=== PATIENT | female | born 1940 | race Caucasian/White ===

== ENCOUNTER 2017-09-28 18:35 | Observation (INO) | payer MEDICARE, OTHER ==
[~2017-09-28 18:35] MED LIST: ACETAMINOPHEN 325 MG TABLET PO PRN
[2017-09-28] MEDS ORDERED: ASPIRIN 81 MG TABLET, CHEWABLE PO ONE (19:43)
--- NOTE | 2017-09-28 19:44 | ER Document Report ---
ED Medical Screen (RME) - General Chief Complaint: Blood Pressure Problem Stated Complaint: BLOOD PRESSURE ISSUES Time Seen by Provider: 09/28/17 19:39 Mode of Arrival: Medic Information source: Patient Notes: 77-year-old female history of hypertension diabetes called EMS for high blood pressure, when they arrived patient's blood pressure was noted to be 154/88, however upon arrival to emergency department patient now states she is having left-sided chest pain when she breathes Patient also admits left hip pain I have greeted and performed a rapid initial assessment of this patient. A comprehensive ED assessment and evaluation of the patient, analysis of test results and completion of the medical decision making process will be conducted by additional ED providers. PHYSICAL EXAMINATION: GENERAL: Well-appearing, well-nourished and in no acute distress. HEAD: Atraumatic, normocephalic. EYES: Pupils equal round extraocular movements intact, conjunctiva are normal. ENT: Nares patent NECK: Normal range of motion LUNGS: No respiratory distress Musculoskeletal: Normal range of motion NEUROLOGICAL: Normal speech, normal gait. PSYCH: Normal mood, normal affect. SKIN: Warm, Dry, normal turgor, no rashes or lesions noted. TRAVEL OUTSIDE OF THE [place] IN LAST 30 DAYS: No - Related Data Allergies/Adverse Reactions: No Known Allergies Allergy (Unverified 11/25/11 13:11) Past Medical History - Social History Chew tobacco use (# tins/day): No Frequency of alcohol use: None Drug Abuse: None - Past Medical History Cardiac Medical History: Reports: Hx Hypertension Endocrine Medical History: Reports: Hx Diabetes Mellitus Type 2 Renal/ Medical History: Denies: Hx Peritoneal Dialysis GI Medical History: Reports: Hx Gastroesophageal Reflux Disease Musculoskeltal Medical History: Reports Hx Arthritis Past Surgical History: Reports: Hx Hysterectomy, Hx Orthopedic Surgery - left hip Physical Exam - Vital signs Vitals: Temp Pulse BP Pulse Ox 99.3 F 106 H 152/90 H 99 09/28/17 19:01 09/28/17 19:01 09/28/17 19:01 09/28/17 19:01 Course - Vital Signs Vital signs: Temp Pulse Resp BP Pulse Ox 99.3 F 106 H 152/90 H 99 09/28/17 19:01 09/28/17 19:01 09/28/17 19:01 09/28/17 19:01
--- NOTE | 2017-09-28 20:40 | ER Document Report ---
ED General - General Chief Complaint: Blood Pressure Problem Stated Complaint: BLOOD PRESSURE ISSUES Time Seen by Provider: 09/28/17 19:39 Mode of Arrival: Medic Information source: Patient Notes: This is a 77-year-old female with a history of hypertension, diabetes who is brought in by EMS with complaints of left chest pressure. Patient states that she has been under a lot of stress lately and she was experiencing left chest pressure and called EMS and told them she was worried about her blood pressure. Currently, the patient denies any chest pain. TRAVEL OUTSIDE OF THE [place] IN LAST 30 DAYS: No - HPI Onset: This morning Onset/Duration: Gradual Quality of pain: Dull Severity: Moderate Pain Level: 2 Associated symptoms: denies: Chills, Fever, Nausea Exacerbated by: Denies Relieved by: Denies Similar symptoms previously: No Recently seen / treated by doctor: No - Related Data Allergies/Adverse Reactions: No Known Allergies Allergy (Unverified 11/25/11 13:11) Past Medical History - General Information source: Patient - Social History Smoking Status: Never Smoker Chew tobacco use (# tins/day): No Frequency of alcohol use: None Drug Abuse: None Lives with: Family Family History: None Patient has suicidal ideation: No Patient has homicidal ideation: No - Past Medical History Cardiac Medical History: Reports: Hx Hypertension Endocrine Medical History: Reports: Hx Diabetes Mellitus Type 2 Renal/ Medical History: Denies: Hx Peritoneal Dialysis GI Medical History: Reports: Hx Gastroesophageal Reflux Disease Musculoskeltal Medical History: Reports Hx Arthritis Past Surgical History: Reports: Hx Hysterectomy, Hx Orthopedic Surgery - left hip Review of Systems - Review of Systems Constitutional: denies: Chills, Fever EENT: No symptoms reported Cardiovascular: See HPI Respiratory: No symptoms reported Gastrointestinal: No symptoms reported Genitourinary: No symptoms reported Female Genitourinary: No symptoms reported Musculoskeletal: See HPI Skin: No symptoms reported Hematologic/Lymphatic: No symptoms reported Neurological/Psychological: No symptoms reported Physical Exam - Vital signs Vitals: Temp Pulse BP Pulse Ox 99.3 F 106 H 152/90 H 99 09/28/17 19:01 09/28/17 19:01 09/28/17 19:01 09/28/17 19:01 Notes: Physical exam: GENERAL: 87-year-old female, alert and oriented 3, no acute distress HEAD: Atraumatic, normocephalic. EYES: Pupils equal round and reactive to light, extraocular movements intact, sclera anicteric, conjunctiva are normal. ENT: TMs normal, nares patent, oropharynx clear without exudates. Moist mucous membranes. NECK: Normal range of motion, supple without obvious mass or JVD. LUNGS: Breath sounds clear to auscultation bilaterally and equal. No wheezes rales or rhonchi. HEART: Regular rate and rhythm without murmurs, rubs or gallops. ABDOMEN: Soft, normoactive bowel sounds. No tenderness to palpation. No guarding, no rebound. No masses appreciated. EXTREMITIES: Normal range of motion, no pitting or edema. No clubbing or cyanosis. NEUROLOGICAL: Cranial nerves II through XII grossly intact. Normal speech, moving all extremities. PSYCH: Normal mood, normal affect. SKIN: Warm, Dry, normal turgor, no rashes or lesions noted. Course - Vital Signs Vital signs: Temp Pulse Resp BP Pulse Ox 98.5 F 93 16 142/62 H 97 09/29/17 01:20 09/29/17 01:20 09/29/17 01:20 09/29/17 01:20 09/29/17 01:20 - Laboratory Result Diagrams: 09/28/17 20:18 09/28/17 20:18 Laboratory results interpreted by me: 09/28/17 09/28/17 20:18 20:18 WBC 12.8 H Hgb 11.6 L Hct 35.8 L Absolute Neutrophils 9.8 H Glucose 130 H - Diagnostic Test Radiology reviewed: Image reviewed, Reports reviewed - EKG Interpretation by Me Rate: Normal Rhythm: NSR - EKG shows normal sinus rhythm with a ventricular rate of 95, no acute ST-T wave changes Discharge - Discharge Clinical Impression: Chest pain Condition: Stable Disposition: ADMITTED OBSERVATION Admitting Provider: [facility] Admitted: Telemetry
[2017-09-28 20:42] LABS: ABSOLUTE EOSINOPHILS # (AUTO) 0.1 10^3/uL (0.0-0.6); ABSOLUTE LYMPHOCYTES (AUTO) 1.9 10^3/uL (0.5-4.7); ABSOLUTE MONOCYTES (AUTO) 0.9 10^3/uL (0.1-1.4); ABSOLUTE NEUT (AUTO) 9.8 10^3/uL (1.7-8.2); BASOPHILS % (AUTO) 0.3 % (0-2); EOSINOPHILS % (AUTO) 0.5 % (0-6); HEMATOCRIT 35.8 % (36.0-47.0); HEMOGLOBIN 11.6 g/dL (12.0-15.5); LYMPHOCYTES % (AUTO) 15.2 % (13-45); MEAN CORPUSCULAR HEMOGLOBIN 29.7 pg (27.0-33.4); MEAN CORPUSCULAR HGB CONC 32.4 g/dL (32.0-36.0); MEAN CORPUSCULAR VOLUME 92 fl (80-97); PLATELET COUNT 211 10^3/uL (150-450); RED BLOOD COUNT 3.91 10^6/uL (3.72-5.28); RED CELL DISTRIBUTION WIDTH 13.9 % (11.5-14.0); TOTAL CELLS COUNTED % (AUTO) 100 %; WHITE BLOOD COUNT 12.8 10^3/uL (4.0-10.5)
[2017-09-28 20:57] LABS: ALANINE AMINOTRANSFERASE 32 U/L (9-52); ALBUMIN 4.3 g/dL (3.5-5.0); ALKALINE PHOSPHATASE 78 U/L (38-126); ANION GAP 14 (5-19); ASPARTATE AMINO TRANSFERASE 26 U/L (14-36); BILIRUBIN,DIRECT 0.2 mg/dL (0.0-0.4); BILIRUBIN,TOTAL 0.3 mg/dL (0.2-1.3); BLOOD UREA NITROGEN 18 mg/dL (7-20); CALCIUM 9.8 mg/dL (8.4-10.2); CARBON DIOXIDE 25 mmol/L (22-30); CHLORIDE 104 mmol/L (98-107); CREATINE KINASE 45 U/L (30-135); GLUCOSE 130 mg/dL (75-110); POTASSIUM 4.2 mmol/L (3.6-5.0); SODIUM 143.3 mmol/L (137-145); TOTAL PROTEIN 7.3 g/dL (6.3-8.2)
[2017-09-28 21:09] LABS: CREATINE KINASE MB 0.42 ng/mL (<4.55); TROPONIN I < 0.012 ng/mL
--- NOTE | 2017-09-28 21:31 | RADIOLOGY REPORT (SQ) ---
EXAM DESCRIPTION: CHEST SINGLE VIEW COMPLETED DATE/TIME: 09/28/2017 8:17 pm REASON FOR STUDY: chest pain COMPARISON: 07/03/2009 EXAM PARAMETERS: NUMBER OF VIEWS: One view. TECHNIQUE: Single frontal radiographic view of the chest acquired. RADIATION DOSE: NA LIMITATIONS: None. FINDINGS: LUNGS AND PLEURA: No acute opacities, masses or pneumothorax. No pleural effusion. MEDIASTINUM AND HILAR STRUCTURES: No masses. Contour normal. HEART AND VASCULAR STRUCTURES: Heart normal in size. Normal vasculature. BONES: No acute findings. Old healed right lateral rib fractures. HARDWARE: None in the chest. OTHER: No other significant finding. IMPRESSION: NO ACUTE RADIOGRAPHIC FINDING IN THE CHEST. TECHNICAL DOCUMENTATION: JOB ID: [id number] [place]-72 2010 [email or web address]- All Rights Reserved Reading location - IP/workstation name: [email or web address]
--- NOTE | 2017-09-28 23:29 | RADIOLOGY REPORT (SQ) ---
EXAM DESCRIPTION: KUB/ABDOMEN (SINGLE VIEW) COMPLETED DATE/TIME: 09/28/2017 10:28 pm REASON FOR STUDY: abd pain COMPARISON: None. NUMBER OF VIEWS: One view. TECHNIQUE: Supine radiographic image of the abdomen acquired. LIMITATIONS: None. FINDINGS: BOWEL GAS PATTERN: Normal bowel gas pattern. No dilated loops. CALCIFICATIONS: No suspicious calcifications. SOFT TISSUES: No gross mass or suggestion of organomegaly. HARDWARE: Cholecystectomy. BONES: No acute fracture. No worrisome bone lesions. OTHER: No other significant finding. IMPRESSION: NO RADIOGRAPHIC EVIDENCE FOR ACUTE ABDOMINAL DISEASE. TECHNICAL DOCUMENTATION: JOB ID: [id number] [place]-72 2010 [employer]- All Rights Reserved Reading location - IP/workstation name: [email or web address]
[2017-09-28] MEDS ORDERED: MORPHINE SULFATE 10 MG/ML INJ INJ PRN (23:58)
[2017-09-29] MEDS ORDERED: NITROGLYCERIN 0.4 MG/TAB 25 TAB/BOTTLE SL PRN (00:03)
[2017-09-29] MEDS ORDERED: ONDANSETRON HCL/PF 4 MG in NORMAL SALINE 50 ML IV PRN (00:04)
[2017-09-29] MEDS ORDERED: ZOLPIDEM TARTRATE 5 MG TABLET PO PRN (00:08)
[2017-09-29 06:27] LABS: HEMATOCRIT 32.4 % (36.0-47.0); HEMOGLOBIN 10.6 g/dL (12.0-15.5); MEAN CORPUSCULAR HEMOGLOBIN 29.8 pg (27.0-33.4); MEAN CORPUSCULAR HGB CONC 32.8 g/dL (32.0-36.0); MEAN CORPUSCULAR VOLUME 91 fl (80-97); PLATELET COUNT 172 10^3/uL (150-450); RED BLOOD COUNT 3.57 10^6/uL (3.72-5.28); RED CELL DISTRIBUTION WIDTH 13.8 % (11.5-14.0); WHITE BLOOD COUNT 11.5 10^3/uL (4.0-10.5)
[2017-09-29 06:48] LABS: ALANINE AMINOTRANSFERASE 28 U/L (9-52); ALBUMIN 3.6 g/dL (3.5-5.0); ALKALINE PHOSPHATASE 64 U/L (38-126); ANION GAP 12 (5-19); ASPARTATE AMINO TRANSFERASE 20 U/L (14-36); BILIRUBIN,DIRECT 0.1 mg/dL (0.0-0.4); BILIRUBIN,TOTAL 0.3 mg/dL (0.2-1.3); BLOOD UREA NITROGEN 15 mg/dL (7-20); CALCIUM 9.1 mg/dL (8.4-10.2); CARBON DIOXIDE 24 mmol/L (22-30); CHLORIDE 107 mmol/L (98-107); CHOLESTEROL 113.16 mg/dL (0-200); CREATINE KINASE 35 U/L (30-135); GLUCOSE 150 mg/dL (75-110); POTASSIUM 3.7 mmol/L (3.6-5.0); SODIUM 143.4 mmol/L (137-145); TOTAL PROTEIN 6.2 g/dL (6.3-8.2); TRIGLYCERIDES 88 mg/dL (<150)
[2017-09-29 06:58] LABS: CREATINE KINASE MB 0.38 ng/mL (<4.55); TROPONIN I 0.023 ng/mL
[2017-09-29 06:59] LABS: DIRECT LDL 60 mg/dL (<100)
[2017-09-29] MEDS ORDERED: LANSOPRAZOLE 30 MG TAB.RAP.DR PO SCH (08:00)
[2017-09-29] MEDS ORDERED: ASPIRIN 81 MG TABLET, ENT COATED PO SCH (10:00)
[2017-09-29] MEDS ORDERED: GLIMEPIRIDE 4 MG TABLET PO SCH (10:00)
[2017-09-29] MEDS ORDERED: ENOXAPARIN SODIUM INJ 40 MG/0.4 ML DISP.SYRIN SUBCUT SCH (10:00)
[2017-09-29] MEDS ORDERED: LISINOPRIL 10 MG TABLET PO SCH (10:00)
[2017-09-29] MEDS ORDERED: DOCUSATE SODIUM 100 MG CAPSULE PO SCH (10:00)
--- NOTE | 2017-09-29 11:31 | PDOC H&P ---
History of Present Illness Admission Date/PCP: 09/28/17 22:24 AXEL BENDER Patient complains of: Left sided chest pressure that lasted for sometime. History of Present Illness: NELLIE ZUNIGA is a 77 year old female with hx of DM2/HTN/Hyperlipidemia/ GERD/OA- knees/Right shoulder bursitis/s.p left nephrectomy, who has been under a lot stress lately. She started having left sided chest pain- pressure- like, 5/10 in intensity, non- radiating, associated with dyspnea.Denied nausea/ vomiting, palpitations, diaphoresis, cough. On account of persistence of symptoms, she called EMS and she was brought to ER for mgt. She was admitted for 23 hour observation to rule out DC. Past Medical History Cardiac Medical History: Reports: Hypertension Endocrine Medical History: Reports: Diabetes Mellitus Type 2 GI Medical History: Reports: Gastroesophageal Reflux Disease Musculoskeltal Medical History: Reports: Arthritis Past Surgical History Past Surgical History: Reports: Hysterectomy, Orthopedic Surgery - left hip Social History Lives with: Family Smoking Status: Never Smoker Family History Family History: None Parental Family History Reviewed: Yes Children Family History Reviewed: Yes Sibling(s) Family History Reviewed.: Yes Medication/Allergy Home Medications: Glimepiride [Glimepiride] 4 mg PO 0730 09/29/17 Lisinopril [Lisinopril] 20 mg PO 0730 09/29/17 Lisinopril [Lisinopril] 20 mg PO 1800 09/29/17 Omeprazole [Omeprazole] 20 mg PO 0730 09/29/17 Allergies/Adverse Reactions: No Known Allergies Allergy (Unverified 11/25/11 13:11) Review of Systems Constitutional: PRESENT: as per HPI Eyes: PRESENT: as per HPI Ears: PRESENT: as per HPI Nose, Mouth, and Throat: PRESENT: as per HPI Breasts: PRESENT: as per HPI Cardiovascular: PRESENT: chest pain, dyspnea on exertion Respiratory: PRESENT: dyspnea Gastrointestinal: PRESENT: as per HPI Genitourinary: PRESENT: as per HPI - hip pain, other - hip pain Integumentary: PRESENT: as per HPI Neurological: PRESENT: as per HPI Psychiatric: PRESENT: as per HPI Endocrine: PRESENT: as per HPI Hematologic/Lymphatic: PRESENT: as per HPI Physical Exam Vital Signs: Temp Pulse Resp BP Pulse Ox 98.8 F 79 14 122/57 L 97 09/29/17 07:19 09/29/17 07:19 09/29/17 07:19 09/29/17 07:19 09/29/17 07:19 Intake & Output 09/28/17 09/29/17 09/30/17 06:59 06:59 06:59 Intake Total 760 Balance 760 General appearance: PRESENT: no acute distress, cooperative, well-developed, well-nourished Head exam: PRESENT: atraumatic, normocephalic Eye exam: PRESENT: EOMI, PERRLA Ear exam: PRESENT: normal external ear exam, TM's normal bilaterally Mouth exam: PRESENT: moist, neck supple, tongue midline Neck exam: PRESENT: full ROM Respiratory exam: PRESENT: clear to auscultation lissette, symmetrical Cardiovascular exam: PRESENT: +S1, +S2 Pulses: PRESENT: +2 pedal pulses bilateral GI/Abdominal exam: PRESENT: normal bowel sounds, soft Rectal exam: PRESENT: deferred Extremities exam: PRESENT: full ROM Musculoskeletal exam: PRESENT: full ROM Neurological exam: PRESENT: alert, awake, oriented to person, oriented to place , oriented to time Psychiatric exam: PRESENT: normal mood Results Laboratory Results: 09/29/17 05:23 09/29/17 05:23 09/29/17 09/29/17 09/29/17 05:23 05:23 05:23 WBC 11.5 H RBC 3.57 L Hgb 10.6 L Hct 32.4 L MCV 91 MCH 29.8 MCHC 32.8 RDW 13.8 Plt Count 172 Sodium 143.4 Potassium 3.7 Chloride 107 Carbon Dioxide 24 Anion Gap 12 BUN 15 Creatinine 0.78 Est GFR ( Amer) > 60 Est GFR (Non-Af Amer) > 60 Glucose 150 H Calcium 9.1 Total Bilirubin 0.3 AST 20 ALT 28 Alkaline Phosphatase 64 Total Protein 6.2 L Albumin 3.6 Triglycerides 88 Cholesterol 113.16 LDL Cholesterol Direct 60 VLDL Cholesterol 18.0 HDL Cholesterol 34 L TSH 1.32 09/29/17 09/29/17 09/29/17 00:38 05:23 05:23 Creatine Kinase 35 CK-MB (CK-2) 0.38 Troponin I < 0.012 0.023 Impressions: Chest X-Ray 09/28/17 19:43 IMPRESSION: NO ACUTE RADIOGRAPHIC FINDING IN THE CHEST. KUB X-Ray 09/28/17 22:10 IMPRESSION: NO RADIOGRAPHIC EVIDENCE FOR ACUTE ABDOMINAL DISEASE. Assessment & Plan - Diagnosis (1) Chest pain Qualifiers: Chest pain type: unspecified Qualified Code(s): R07.9 - Chest pain, unspecified Is this a current diagnosis for this admission?: Yes Plan: Ct with oxygen by N/C 2 L/min to keep saturation>92%; NTG 0.4 mg q5 minutes prn S/L x3; Morphine 4 mg q4h IV prn for severe chest pain; Zofran4 mg q6h IV prn nausea; Aspirin 81 mg qd po; serial EKG/cardiac enzymes to rule out DC. (2) Diabetes mellitus type 2 in nonobese Is this a current diagnosis for this admission?: Yes Plan: Ct with Amaryl 4 mg qd po; slidding scale with humalog insulin as per [facility] protocol; Accucheck qac, qhs. 1800 calorie ADA diet.HBA1C was obtained. (3) Hypertension Qualifiers: Hypertension type: essential hypertension Qualified Code(s): I10 - Essential (primary) hypertension Is this a current diagnosis for this admission?: Yes Plan: Ct with Lisinopril 40 mg qd po; 2 g sodium diet. (4) Hyperlipidemia Qualifiers: Hyperlipidemia type: mixed hyperlipidemia Qualified Code(s): E78.2 - Mixed hyperlipidemia Is this a current diagnosis for this admission?: Yes Plan: Ct with 200 mg cholesterol diet. (5) Reflux esophagitis Is this a current diagnosis for this admission?: Yes Plan: Ct wit Prevacid 30 mg qd po since we do not have Omeprazole in our formulary. (6) Osteoarthritis of knees, bilateral Qualifiers: Osteoarthritis type: unspecified Qualified Code(s): M17.0 - Bilateral primary osteoarthritis of knee Is this a current diagnosis for this admission?: Yes Plan: Ct with Tylenol 650 mg q6h prn po. (7) DVT prophylaxis Is this a current diagnosis for this admission?: Yes Plan: Ct with Lovenox 40 mg qd subcut; SCD - Time Time Spent: 30 to 50 Minutes Medications reviewed and adjusted accordingly: Yes Anticipated discharge: Home Within: within 24 hours
[2017-09-29 12:37] LABS: CREATINE KINASE MB 0.49 ng/mL (<4.55); TROPONIN I 0.032 ng/mL
[2017-09-29 12:44] VITALS: BP 119/60
--- NOTE | 2017-09-29 14:43 | PDOC DISCHARGE SUMMARY ---
General - Admit/Disc Date/PCP Admission Date/Primary Care Provider: 09/28/17 22:24 AXEL BENDER Discharge Date: 09/29/17 - Discharge Diagnosis (1) Chest pain Is this a current diagnosis for this admission?: Yes (2) Diabetes mellitus type 2 in nonobese Is this a current diagnosis for this admission?: Yes (3) Hypertension Is this a current diagnosis for this admission?: Yes (4) Hyperlipidemia Is this a current diagnosis for this admission?: Yes (5) Reflux esophagitis Is this a current diagnosis for this admission?: Yes (6) Osteoarthritis of knees, bilateral Is this a current diagnosis for this admission?: Yes (7) DVT prophylaxis Is this a current diagnosis for this admission?: Yes - Additional Information Home Medications: Ferrous Sulfate [Feosol 325 mg Tablet] 325 mg PO DAILY 09/29/17 Glimepiride [Glimepiride] 4 mg PO DAILY@0730 09/29/17 Lisinopril [Lisinopril] 20 mg PO BID@0730,1800 09/29/17 Omeprazole [Omeprazole] 20 mg PO DAILY@0730 09/29/17 History of Present Illness History of Present Illness: NELLIE ZUNIGA is a 77 year old female with hx of DM2/HTN/Hyperlipidemia/ GERD/OA- knees/Right shoulder bursitis/s.p left nephrectomy, who has been under a lot stress lately. She started having left sided chest pain- pressure- like, 5/10 in intensity, non- radiating, associated with dyspnea.Denied nausea/ vomiting, palpitations, diaphoresis, cough. On account of persistence of symptoms, she called EMS and she was brought to ER for mgt. She was admitted for 23 hour observation to rule out NC. Hospital Course Hospital Course: 77 year old woman with hx of DM/HTN/Hyperlipidemia/GERD, who was admitted for chest pain and NC was ruled out. She is under a lot of stress and the chest pain could be due to stress or anxiety related. She was counseled on stress mgt and she was advised to follw up with her PCP in 1 week to assess her for further risk stratification. The need for compliance with medications and office appointments was emphasized. Physical Exam Vital Signs: Temp Pulse Resp BP Pulse Ox 97.9 F 74 15 119/60 100 09/29/17 12:30 09/29/17 12:30 09/29/17 12:30 09/29/17 12:30 09/29/17 12:30 Intake & Output 09/28/17 09/29/17 09/30/17 06:59 06:59 06:59 Intake Total 760 118 Balance 760 118 General appearance: PRESENT: no acute distress, cooperative, well-developed, well-nourished Head exam: PRESENT: atraumatic, normocephalic Eye exam: PRESENT: EOMI, PERRLA Ear exam: PRESENT: normal external ear exam, TM's normal bilaterally Mouth exam: PRESENT: moist, neck supple, tongue midline Neck exam: PRESENT: full ROM Respiratory exam: PRESENT: clear to auscultation lissette, symmetrical Cardiovascular exam: PRESENT: +S1, +S2 Pulses: PRESENT: +2 pedal pulses bilateral GI/Abdominal exam: PRESENT: normal bowel sounds, soft Rectal exam: PRESENT: deferred Extremities exam: PRESENT: full ROM Musculoskeletal exam: PRESENT: full ROM Neurological exam: PRESENT: alert, awake, oriented to person, oriented to place , oriented to time Psychiatric exam: PRESENT: normal mood Results Laboratory Results: 09/29/17 05:23 09/29/17 05:23 09/29/17 09/29/17 09/29/17 05:23 05:23 05:23 WBC 11.5 H RBC 3.57 L Hgb 10.6 L Hct 32.4 L MCV 91 MCH 29.8 MCHC 32.8 RDW 13.8 Plt Count 172 Sodium 143.4 Potassium 3.7 Chloride 107 Carbon Dioxide 24 Anion Gap 12 BUN 15 Creatinine 0.78 Est GFR ( Amer) > 60 Est GFR (Non-Af Amer) > 60 Glucose 150 H Calcium 9.1 Total Bilirubin 0.3 AST 20 ALT 28 Alkaline Phosphatase 64 Total Protein 6.2 L Albumin 3.6 Triglycerides 88 Cholesterol 113.16 LDL Cholesterol Direct 60 VLDL Cholesterol 18.0 HDL Cholesterol 34 L TSH 1.32 09/29/17 09/29/17 09/29/17 00:38 05:23 05:23 Creatine Kinase 35 CK-MB (CK-2) 0.38 Troponin I < 0.012 0.023 09/29/17 09/29/17 11:32 11:32 Creatine Kinase 30 CK-MB (CK-2) 0.49 Troponin I 0.032 Impressions: Chest X-Ray 03/22/18 19:43 IMPRESSION: NO ACUTE RADIOGRAPHIC FINDING IN THE CHEST. KUB X-Ray 09/28/17 22:10 IMPRESSION: NO RADIOGRAPHIC EVIDENCE FOR ACUTE ABDOMINAL DISEASE. Qualifiers - * PATEINT BEING DISCHARGED WITH ANY OF THE FOLLOWING DIAGNOSIS?: No
--- NOTE | 2017-09-29 22:08 | EKG REPORT ---
SEVERITY:- BORDERLINE ECG - SINUS RHYTHM VENTRICULAR PREMATURE COMPLEX CONSIDER ANTERIOR INFARCT BORDERLINE T ABNORMALITIES, INFERIOR LEADS : Confirmed by: Valerie Stallings 29-Sep-2017 22:08:03
--- NOTE | 2017-09-29 22:08 | EKG REPORT ---
SEVERITY:- NORMAL ECG - SINUS RHYTHM : Confirmed by: Valerie Stallings 29-Sep-2017 22:07:31
--- NOTE | 2017-09-29 22:08 | EKG REPORT ---
SEVERITY:- BORDERLINE ECG - SINUS RHYTHM BORDERLINE R WAVE PROGRESSION, ANTERIOR LEADS : Confirmed by: Valerie Stallings 29-Sep-2017 22:07:45
== END 2017-09-29 16:10 | disposition home or self-care (01) ==
LOC: ER 18:35 → EH 22:24 → 3W 09-29 01:24
PROVIDERS: ADMIT Internal Medicine; ATTEND Internal Medicine
DX: R07.89 Other chest pain (principal); E11.9 Type 2 diabetes mellitus without complications; I10 Essential (primary) hypertension; E78.2 Mixed hyperlipidemia; K21.0 Gastro-esophageal reflux disease with esophagitis; M17.0 Bilateral primary osteoarthritis of knee; R06.00 Dyspnea, unspecified; M25.559 Pain in unspecified hip; Z73.3 Stress, not elsewhere classified; Z90.5 Acquired absence of kidney; Z79.899 Other long term (current) drug therapy; Z79.84 Long term (current) use of oral hypoglycemic drugs; Z98.890 Other specified postprocedural states
CPT/HCPCS: 93005 ×2; 99285; 36415 ×2; 82553 ×2; 82962; 82550 ×2; 84443; 85025; 85027; 80053 ×2; 84484 ×2; 83036; 80061; 71045; 74018; 93010 ×2; G0378 ×3; A9270 ×6; J3490

== ENCOUNTER → 2018-08-27 | Outpatient (CLI) | payer MEDICARE, OTHER ==
--- NOTE | 2018-08-27 17:42 | RADIOLOGY REPORT (SQ) ---
EXAM DESCRIPTION: ANKLE LEFT COMPLETE COMPLETED DATE/TIME: 08/27/2018 4:45 pm REASON FOR STUDY: M24.672 ANKYLOSIS, LEFT ANKLE M24.672 ANKYLOSIS, LEFT ANKLE COMPARISON: None. NUMBER OF VIEWS: Three views. TECHNIQUE: AP, lateral, and oblique radiographic images acquired of the left ankle. LIMITATIONS: None. FINDINGS: MINERALIZATION: Osteoporotic BONES: No acute fracture or dislocation. No worrisome bone lesions. JOINTS: No tibiotalar joint effusion or disruption of the ankle mortise. Grossly intact sub talar an d intertarsal joints. SOFT TISSUES: No soft tissue swelling. No foreign body. OTHER: No other significant finding. IMPRESSION: Osteoporosis. No acute findings TECHNICAL DOCUMENTATION: JOB ID: [id number] [employer]- All Rights Reserved Reading location - IP/workstation name: [email or web address]
== END ==
LOC: RAD 16:23
PROVIDERS: ATTEND Internal Medicine
DX: M24.672 Ankylosis, left ankle (principal); M81.0 Age-related osteoporosis without current pathological fracture